=== PATIENT | male | born 1970 | race Two or more races ===

== ENCOUNTER 2021-04-01 14:01 | Emergency (ER) | payer OTHER ==
[2021-04-01] MEDS ORDERED: Acetaminophen/oxyCODONE 325-5 MG Tab PO ONE (14:08)
[2021-04-01] MEDS ORDERED: ceFAZolin 1 GM in Premix Bag 1 BAG IV ONE (14:08)
--- NOTE | 2021-04-01 14:14 | EDM.PDOC ---
ED HPI GENERAL MEDICAL PROBLEM - General Chief Complaint: Upper Extremity Injury/Pain Stated Complaint: CUT RT HAND Time Seen by Provider: 04/01/21 14:10 Source of Information: Reports: Patient History Limitations: Reports: No Limitations - History of Present Illness INITIAL COMMENTS - FREE TEXT/NARRATIVE: Patient is a 51-year-old Turkish-speaking male presents today for a right hand injury. He states his hand was smashed between elevator. His ring finger is hanging off he has open wound to the dorsal side of his right hand as well. He denies any other injury states his pain is minimal 1 years when he moves it. Patient denies any other complaints. right hand Pain Score (Numeric/FACES): 8 - Related Data Allergies Allergy/AdvReac Type Severity Reaction Status Date / Time No Known Allergies Allergy Verified 04/01/21 14:10 Home Meds: Home Meds . [No Known Home Meds] 04/01/21 [History] Review of Systems - Review of Systems Review Of Systems: See Below Constitutional: Reports: No Symptoms Eyes: Reports: No Symptoms Ears: Reports: No Symptoms Nose: Reports: No Symptoms Mouth/Throat: Reports: No Symptoms Respiratory: Reports: No Symptoms Cardiovascular: Reports: No Symptoms GI/Abdominal: Reports: No Symptoms Genitourinary: Reports: No Symptoms Musculoskeletal: Reports: Hand Pain Skin: Reports: No Symptoms Neurological: Reports: No Symptoms Psychiatric: Reports: No Symptoms ED EXAM, GENERAL - Physical Exam Exam: See Below Exam Limited By: No Limitations General Appearance: Alert, WD/WN, Moderate Distress Eye Exam: Bilateral Eye: EOMI Ears: Normal External Exam Nose: Normal Inspection Head: Atraumatic Neck: Normal Inspection Respiratory/Chest: No Respiratory Distress Extremities: No: Normal Inspection (Right ring finger seems to be avulsed off a large laceration to the dorsal side of the hand) Neurological: Alert, Oriented ED TRAUMA EXTREMITY PROCEDURES - Splinting Right Upper Extremity Splint Site: hand Pre-Procedure NV Status: Normal Post-Procedure NV Status: Normal Splint Material: Metal, Barber Tape Splint Design: Other Applied & Form Fitted By: Provider Provider Post-Splint Application NV Check: NV Status Normal Complications: No Course - Vital Signs Last Recorded V/S: Last Vital Signs Temp 97.0 F 04/01/21 14:05 Pulse 78 04/01/21 14:05 Resp 18 04/01/21 14:05 BP 160/88 H 04/01/21 14:05 Pulse Ox 97 04/01/21 14:05 - Orders/Labs/Meds Orders: Active Orders 24 hr Category Date Time Status Vaccine to be Administered/Admin Charge [RC] ASDIRECTED Care 04/01/21 15:47 Ordered Meds: Medications Discontinued Medications Generic Name Dose Route Start Last Admin Trade Name Freq PRN Reason Stop Dose Admin Diphtheria/Tetanus/Acell Pertussis 0.5 ml 04/01/21 15:46 Diphtheria,Pertussis(Acell),Tetanus Vaccine 0.5 Ml Syringe IM 04/01/21 15:47 .ONCE ONE Cefazolin Sodium/Dextrose 1 gm 50 mls @ 100 mls/hr 04/01/21 14:08 04/01/21 14:37 / Premix IV 04/01/21 14:37 100 mls/hr ONETIME ONE Administration Oxycodone/Acetaminophen 1 tab 04/01/21 14:08 04/01/21 14:20 Acetaminophen/Oxycodone 325-5 Mg Tab PO 04/01/21 14:09 1 tab ONETIME ONE Administration - Re-Assessments/Exams Free Text/Narrative Re-Assessment/Exam: 04/01/21 16:05 We spoke to [facility] initially and I recommended calling [facility] we called for ago and they do not have anybody production team advisor or does reimplantation we did go to [facility] in [facility] and after speaking to 2 orthopedic physicians there they stated that due to being a single digit they do not recommend rehabilitation at this time. We then called our orthopedic doctor back here in [place] and he recommended transferring to the hand specialist in [place] to assist in a complete amputation. I wrapped the patient's hand up patient had good flow to the other fingers and good range of motion. Patient pain is well controlled. Patient since his Ancef and his tetanus. Patient will be sent to [place] for further care. Departure - Departure Time of Disposition: 16:06 Disposition: Home, Self-Care 01 Condition: Good Clinical Impression: Amputation, finger, traumatic - Discharge Information *PRESCRIPTION DRUG MONITORING PROGRAM REVIEWED*: Not Applicable *COPY OF PRESCRIPTION DRUG MONITORING REPORT IN PATIENT JUNIOR: Not Applicable Instructions: Traumatic Finger Amputation Forms: ED Department Discharge Additional Instructions: Lo vieron despus de que le amputaran el dedo en el trabajo. Higinioos con varios mdicos y no recomiendan el reimplante en ashia momento. Lo enviaremos a [facility], donde intentarn completar blade amputacin completa. El nmero y la direccin se adjuntan a la michelle que le sha, vaya all de inmediato. You were seen after your finger was amputated at work. We spoke to multiple doctors and they do not recommend reimplantation at this time. We will send you to [facility] where they will attempt to complete a full amputation. The number and address is attached to the family gave you please go there immediately. The following information is given to patients seen in the emergency department who are being discharged to home. This information is to outline your options for follow-up care. We provide all patients seen in our emergency department with a follow-up referral. The need for follow-up, as well as the timing and circumstances, are variable depending upon the specifics of your emergency department visit. If you don't have a primary care physician on staff, we will provide you with a referral. We always advise you to contact your personal physician following an emergency department visit to inform them of the circumstance of the visit and for follow-up with them and/or the need for any referrals to a consulting specialist. The emergency department will also refer you to a specialist when appropriate. This referral assures that you have the opportunity for follow-up care with a specialist. All of these measure are taken in an effort to provide you with optimal care, which includes your follow-up. Under all circumstances we always encourage you to contact your private physician who remains a resource for coordinating your care. When calling for follow-up care, please make the office aware that this follow-up is from your recent emergency room visit. If for any reason you are refused follow-up, please contact the [facility] Emergency Departm ent at and asked to speak to the emergency department charge nurse. Please follow up with your primary care physician. If you do not have a primary care physician, see below: [facility] - Orthopedic Clinic Professional Building [address] [place] [address], [address] [place] [address] Orthopedic Surgery Ifeanyi [id number] [place], [place] [address] [address] Sepsis Event Note (ED) - Focused Exam Vital Signs: Vital Signs Temp Pulse Resp BP Pulse Ox 04/01/21 14:05 97.0 F 78 18 160/88 H 97 - My Orders Last 24 Hours: My Active Orders 04/01/21 15:47 Vaccine to be Administered/Admin Charge [RC] ASDIRECTED - Assessment/Plan Last 24 Hours: My Active Orders 04/01/21 15:47 Vaccine to be Administered/Admin Charge [RC] ASDIRECTED Plan: Patient is a 51-year-old male presents today after he elevators a mass to his right hand. He has always open fracture with a possible dislocation of the right ring finger.
--- NOTE | 2021-04-01 15:09 | CR ---
Indication: Hand smashed in elevator Technique: Three views right hand Comparison: None Findings: Bones: There is a transverse fracture through the mid right 4th proximal phalanx. The more distal finger is displaced approximately 1 cm towards the thumb. The distal aspect of the proximal phalanx demonstrates an oblique fracture. Joint spaces: Unremarkable. Soft tissues: Unremarkable. Impression: Transverse fracture through the mid right 4th proximal phalanx. The more distal finger is displaced approximately 1 cm towards the thumb. The distal aspect of the proximal phalanx demonstrates an oblique fracture. Dictated by Nicki Doan MD @ 04/01/2021 3:07:34 PM (Electronically Signed)
[2021-04-01] MEDS ORDERED: Diphtheria,Pertussis(Acell),Tetanus Vaccine 0.5 ML Syringe IM ONE (15:46)
== END 2021-04-01 16:35 | disposition home or self-care (01) ==
LOC: MW.ED 14:01
DX: S68.114A Complete traumatic metacarpophalangeal amputation of right ring finger, initial encounter (principal); Z23 Encounter for immunization; W23.0XXA Caught, crushed, jammed, or pinched between moving objects, initial encounter
CPT/HCPCS: 73130; 90471; 90715; 96365; 99284; A9270; J0690